=== PATIENT | female | born 1965 ===

== ENCOUNTER 2021-04-17 19:41 | Emergency (ER) | payer SELFPAY ==
[~2021-04-17] VITALS: Ht 177.8 cm; Wt 124.1 kg
[2021-04-17 19:42] VITALS: BP 128/81
[2021-04-17] MEDS ORDERED: CYCL-707 PO (19:57)
[2021-04-17] MEDS ORDERED: METF500T13 PO (19:57)
[2021-04-17] MEDS ORDERED: FISH1000 PO (19:57)
[2021-04-17] MEDS ORDERED: MAGN300C PO (19:57)
== END 2021-04-17 20:46 | disposition left against medical advice (07) ==
LOC: M ED 19:41
DX: Z53.21 Procedure and treatment not carried out due to patient leaving prior to being seen by health care provider (principal)